=== PATIENT | female | born 1950 | race Caucasian/White ===

== ENCOUNTER 2017-03-29 11:43 | Emergency (ER) | payer OTHER ==
[~2017-03-29] VITALS: Ht 177.8 cm; Wt 61.2 kg
[2017-03-29 11:50] VITALS: BP_SYST 134
[2017-03-29] MEDS ORDERED: DIPHENHYDRAMINE INJ 50 MG/ML VIAL IVP ONE (12:00)
[2017-03-29] MEDS ORDERED: MORPHINE 2 MG/ML INJ. SYRINGE IVP ONE (12:00)
[2017-03-29 13:31] VITALS: BP_SYST 125
== END 2017-03-29 13:31 | disposition home or self-care (01) ==
LOC: SED 11:43
DX: S00.93XA Contusion of unspecified part of head, initial encounter (principal); M54.5 Low back pain; E78.5 Hyperlipidemia, unspecified; V80.010A Animal-rider injured by fall from or being thrown from horse in noncollision accident, initial encounter; Y93.89 Activity, other specified; Y92.89 Other specified places as the place of occurrence of the external cause; Y99.8 Other external cause status
CPT/HCPCS: 70450; 72131; 96374; 96375; 99284; J1200; J2270